=== PATIENT | male | born 1990 | race African-American/Black ===

== ENCOUNTER 2017-06-29 19:16 | Emergency (ER) | payer MEDICAID ==
[~2017-06-29] VITALS: Ht 167.6 cm; Wt 83.0 kg
[~2017-06-29 19:16] MED LIST: IBUP800T23 PO; METH750T2 PO
[2017-06-29 19:24] VITALS: BP 148/70; PULSE 67; RESP 18; TEMP 97.7; O2SAT 98
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
[2017-06-29] MEDS ORDERED: KETOROLAC TROMETHAMINE 60 MG/2 ML (IM) VIAL IM ONE (20:15)
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
[2017-06-29] MEDS ORDERED: IBUP1TAB7 PO (20:42)
[2017-06-29 20:48] VITALS: BP 140/70
== END 2017-06-29 20:50 | disposition home or self-care (01) ==
LOC: PHED 19:16
DX: R51 Headache (principal); J02.9 Acute pharyngitis, unspecified
CPT/HCPCS: 70450; 96372; 99285; J1885